=== PATIENT | male | born 1960 | race Caucasian/White ===

== ENCOUNTER → 2019-07-01 | Outpatient (CLI) | payer OTHER ==
--- NOTE | 2019-07-02 07:59 | MRI ---
EXAM DESCRIPTION: Lumbar Spine w/o Contrast : Magnetic Resonance Imaging. CLINICAL HISTORY: RADICULOPATHY COMPARISON: Lumbar spine radiographs September 2018. TECHNIQUE: Multiplanar, multiple standard sequences, non contrast MRI, lumbar spine. Resolution on some sequences decreased due to patient motion. FINDINGS: L5-S1: The disc is well visualized on axial T2 series 501, image 3. Disc desiccation and moderate disc space loss. Diffuse moderate endplate reactive changes. Grade 1 retrolisthesis 1 to 2 mm. Posterior midline disc osteophyte bulge abutting the thecal sac. Minimal narrowing of the left subarticular recess. Degenerative hypertrophy in the posterior flavum ligaments and facet joints (posterior elements). Bilaterally shortened pedicles. AP canal diameter 12 mm. Anterior endplate spurs with disc bulging. Moderate to severe narrowing of the bilateral foramina more on the right, by bilateral disc osteophyte complexes L4-L5: Moderate to severe disc space loss more on the right. Right side moderate endplate reactive changes with disc spur complex encroaching on the right foramen and the right L4 nerve. Minimal posterior disc osteophyte bulge abutting the thecal sac. Grade 1 retrolisthesis 2 mm. Mild generative hypertrophy of the posterior elements impressing on the lateral thecal sac. Bilaterally shortened pedicles. AP canal diameter 10 mm. Moderate narrowing of the left foramen. L3-L4 disc space narrowing. Disc desiccation. Minimal anterior bulge. Trace retrolisthesis with small posterior bulge, more left than right. Degenerative hypertrophy of the posterior elements. Impressing on the lateral thecal sac. Bilaterally shortened pedicles. AP canal diameter 9.5 mm. Bilateral mild foraminal narrowing. L2-L3: Disc desiccation with disc space maintained. Minimal anterior bulging. Minimal bulging of the disc into the left of midline and into the left foramen. Minimal degenerative hypertrophy of the posterior elements. Bilaterally shortened pedicles. AP canal diameter 13 mm. Mild narrowing of the left foramen with right foramen patent. L1-L2: Disc desiccation and minimal disc space loss. Minimal anterior bulging. Degenerative hypertrophy of the posterior elements. Canal and bilateral foramina are patent. T12-L1: Normal signal in the disc with disc space maintained. Right anterior disc osteophyte bulge. No posterior bulge. Posterior elements unremarkable. Canal and foramina are patent. Conus terminates posterior to L1. No scoliosis. Paravertebral soft tissues unremarkable.. Distal cord normal signal and caliber. Otherwise normal marrow signal in the remaining vertebral bodies and the posterior elements. Vertebral bodies are not compressed at any level. IMPRESSION: 1. Narrowing of the canal and foramina at multiple levels due to bilateral shortened pedicles, degenerative hypertrophy of the flavum ligaments and facet joints, and bulging discs. Also spondylosis at multiple levels. 2. Grade 1 retrolisthesis L5-S1. Posterior disc osteophyte bulge, also bilateral disc osteophyte bulge. Moderate to severe narrowing of the bilateral foramina. Correlate for bilateral L5 radiculopathy. 3. L4-L5 right foraminal stenosis secondary to disc osteophyte bulge with possible compromise right L4 nerve. Multifactorial borderline mild central canal stenosis. 4. Multifactorial borderline mild L3-4 central canal stenosis. Electronically signed by: Leonard Quiñones MD 07/02/2019 7:57 AM [facility]
== END ==
LOC: MRI 07:09
PROVIDERS: ATTEND Family Medicine
DX: M54.16 Radiculopathy, lumbar region (principal); M43.17 Spondylolisthesis, lumbosacral region; M51.86 Other intervertebral disc disorders, lumbar region; M48.061 Spinal stenosis, lumbar region without neurogenic claudication; M48.07 Spinal stenosis, lumbosacral region; M47.896 Other spondylosis, lumbar region; M25.78 Osteophyte, vertebrae; M24.28 Disorder of ligament, vertebrae